=== PATIENT | male | born 1950 | race Caucasian/White ===

== ENCOUNTER 2019-04-01 10:40 | Emergency (ER) | payer MEDICARE, OTHER ==
--- NOTE | 2019-04-01 11:34 | ER Document Report ---
ED Medical Screen (RME) - General Chief Complaint: Abdominal Pain Stated Complaint: LOWER ABDOMINAL PAIN Time Seen by Provider: 04/01/19 11:15 Mode of Arrival: Ambulatory Information source: Patient, Relative Notes: 69-year-old male presents with lower abdominal pain for months. Patient has history of colitis diverticulitis. He was treated with antibiotics and steroids in [place] in January or February. Patient reports he continues to have the pain. Also complains of bilateral hip pain left knee pain. Has history of gout. Denies fever vomiting but complains of some nausea. Reports last bowel movement was 3 days ago. Reports he takes MiraLAX on a regular basis and he had diarrhea for 3 times a row so he quit taking that 3 days ago. Patient is visiting from [place]. I have greeted and performed a rapid initial assessment of this patient. A comprehensive ED assessment and evaluation of the patient, analysis of test results and completion of the medical decision making process will be conducted by additional ED providers. Dictation of this chart was performed using voice recognition software; therefore, there may be some unintended grammatical errors. TRAVEL OUTSIDE OF THE [place] IN LAST 30 DAYS: No - Related Data Allergies/Adverse Reactions: No Known Allergies Allergy (Verified 04/01/19 10:55) Past Medical History - Social History Chew tobacco use (# tins/day): No Frequency of alcohol use: None Drug Abuse: None - Past Medical History Cardiac Medical History: Reports: Hx Hypercholesterolemia, Hx Hypertension Musculoskeltal Medical History: Reports Hx Arthritis
[2019-04-01 12:07] LABS: ABSOLUTE BASOPHILS # (AUTO) 0.1 10^3/uL (0.0-0.2); ABSOLUTE EOSINOPHILS # (AUTO) 0.2 10^3/uL (0.0-0.6); ABSOLUTE LYMPHOCYTES (AUTO) 1.5 10^3/uL (0.5-4.7); ABSOLUTE MONOCYTES (AUTO) 1.1 10^3/uL (0.1-1.4); ABSOLUTE NEUT (AUTO) 6.6 10^3/uL (1.7-8.2); BASOPHILS % (AUTO) 0.5 % (0-2); EOSINOPHILS % (AUTO) 1.8 % (0-6); HEMATOCRIT 37.8 % (37.9-51.0); HEMOGLOBIN 12.8 g/dL (13.5-17.0); LYMPHOCYTES % (AUTO) 15.6 % (13-45); MEAN CORPUSCULAR HGB CONC 33.9 g/dL (32.0-36.0); MEAN CORPUSCULAR VOLUME 92 fl (80-97); MONOCYTES % (AUTO) 11.5 % (3-13); PLATELET COUNT 204 10^3/uL (150-450); RED BLOOD COUNT 4.13 10^6/uL (4.35-5.55); RED CELL DISTRIBUTION WIDTH 14.3 % (11.5-14.0); SEGMENTED NEUTROPHILS % (AUTO) 70.6 % (42-78); TOTAL CELLS COUNTED % (AUTO) 100 %; WHITE BLOOD COUNT 9.3 10^3/uL (4.0-10.5)
[2019-04-01 12:17] LABS: ALBUMIN 3.9 g/dL (3.5-5.0); ALKALINE PHOSPHATASE 90 U/L (38-126); ANION GAP 10 (5-19); ASPARTATE AMINO TRANSFERASE 23 U/L (17-59); BILIRUBIN,DIRECT 0.1 mg/dL (0.0-0.4); BLOOD UREA NITROGEN 22 mg/dL (7-20); CALCIUM 9.7 mg/dL (8.4-10.2); CARBON DIOXIDE 25 mmol/L (22-30); CHLORIDE 105 mmol/L (98-107); GLUCOSE 114 mg/dL (75-110); POTASSIUM 4.4 mmol/L (3.6-5.0); TOTAL PROTEIN 6.6 g/dL (6.3-8.2)
[2019-04-01] MEDS ORDERED: MORPHINE SULFATE 10 MG/ML INJ IV ONE (12:46)
[2019-04-01] MEDS ORDERED: NORMAL SALINE 1000 ML 1,000 ML IV PRN ×2 (12:47→15:35)
[2019-04-01 12:54] LABS: ERYTHROCYTE SEDIMENTATION RATE 45 mm/hr (0-20)
--- NOTE | 2019-04-01 13:24 | ER Document Report ---
ED General - General Chief Complaint: Abdominal Pain Stated Complaint: LOWER ABDOMINAL PAIN Time Seen by Provider: 04/01/19 11:15 Mode of Arrival: Ambulatory TRAVEL OUTSIDE OF THE [place] IN LAST 30 DAYS: No - HPI Notes: This is a 69-year-old gentleman who presents today with a complaint of left lower quadrant abdominal pain for the past 2 to 3 days. Patient states that he has history of Crohn's disease and diverticulitis, and has had recent multiple flareups. Patient states he thinks this is from diverticulitis. He denies any vomiting or diarrhea. He denies any dark or bloody stools. He denies any fever or chills. He describes the symptoms as moderate. Pain is worse with palpation. - Related Data Allergies/Adverse Reactions: No Known Allergies Allergy (Verified 04/01/19 10:55) Past Medical History - General Information source: Patient, Relative - Social History Smoking Status: Current Every Day Smoker Chew tobacco use (# tins/day): No Frequency of alcohol use: None Drug Abuse: None Family History: Reviewed & Not Pertinent Patient has suicidal ideation: No Patient has homicidal ideation: No - Past Medical History Cardiac Medical History: Reports: Hx Hypercholesterolemia, Hx Hypertension Musculoskeletal Medical History: Reports Hx Arthritis Review of Systems - Review of Systems Constitutional: denies: Fever Cardiovascular: denies: Chest pain, Palpitations Gastrointestinal: Abdominal pain. denies: Diarrhea, Vomiting Genitourinary: denies: Flank pain, Hematuria -: Yes All other systems reviewed and negative Physical Exam - Vital signs Vitals: Temp Pulse Resp BP Pulse Ox 97.9 F 83 16 125/66 97 04/01/19 10:48 04/01/19 10:48 04/01/19 10:48 04/01/19 10:48 04/01/19 10:48 Interpretation: Normal Notes: Reviewed and unremarkable. - General General appearance: Appears well, Alert - Respiratory Respiratory status: No respiratory distress Chest status: Nontender Breath sounds: Normal Chest palpation: Normal - Cardiovascular Rhythm: Regular Heart sounds: Normal auscultation Murmur: No - Abdominal Inspection: Normal Distension: No distension Bowel sounds: Normal Tenderness: Tender - There is left lower quadrant tenderness to palpation. There is slight epigastric tenderness. Patient describes it as sore. No guarding or rebound. Organomegaly: No organomegaly - Extremities General upper extremity: Normal inspection, Nontender, Normal color, Normal ROM, Normal temperature General lower extremity: Normal inspection, Nontender, Normal color, Normal ROM, Normal temperature, Normal weight bearing. No: David's sign - Neurological Neuro grossly intact: Yes Cognition: Normal Orientation: AAOx4 [place] Coma Scale Eye Opening: Spontaneous [place] Coma Scale Verbal: Oriented [place] Coma Scale Motor: Obeys Commands Ivanna Coma Scale Total: 15 Speech: Normal Motor strength normal: LUE, RUE, LLE, RLE Sensory: Normal - Skin Skin Temperature: Warm Skin Moisture: Dry Skin Color: Normal Course - Re-evaluation Re-evalutation: 04/01/19 13:23 Differential diagnosis includes diverticulitis versus Crohn's flare versus nonspecific abdominal pain versus colitis vs pancreatitis. Doubt toxic megacolon. Will get CT scan. Will check basic labs. 04/01/19 15:38 Patient reevaluated. Patient is doing well. Labs and CT reviewed. Will need to admit for gallstone pancreatitis. Patient's care discussed with Dr. Ahmadi, surgery. He recommends medicine admit. Agrees with getting gallbladder ultrasound. Patient's care discussed with Dr. Smith. Will admit. - Vital Signs Vital signs: Temp Pulse Resp BP Pulse Ox 97.9 F 83 16 130/76 H 97 04/01/19 10:48 04/01/19 10:48 04/01/19 10:48 04/01/19 13:01 04/01/19 13:01 - Laboratory Result Diagrams: 04/01/19 11:48 04/01/19 11:48 Laboratory results interpreted by me: 04/01/19 04/01/19 11:48 11:48 RBC 4.13 L Hgb 12.8 L Hct 37.8 L RDW 14.3 H ESR 45 H BUN 22 H Glucose 114 H Lipase 643.0 H Discharge - Discharge Clinical Impression: Acute cholecystitis due to biliary calculus Acute pancreatitis Qualifiers: Pancreatitis type: unspecified pancreatitis type Acute pancreatitis complication: unspecified Qualified Code(s): K85.90 - Acute pancreatitis without necrosis or infection, unspecified Condition: Good Disposition: ADMITTED INPATIENT Admitting Provider: Luis (Hospitalist) Unit Admitted: Medical Floor
--- NOTE | 2019-04-01 15:22 | RADIOLOGY REPORT (SQ) ---
EXAM DESCRIPTION: CT ABD/PELVIS WITH IV ONLY COMPLETED DATE/TIME: 04/01/2019 2:29 pm REASON FOR STUDY: LLQ pain ? diverticulitis COMPARISON: None. TECHNIQUE: CT scan of the abdomen and pelvis performed using helical scanning technique with dynamic intravenous contrast injection. No oral contrast. Images reviewed with lung, soft tissue, and bone windows. Reconstructed coronal and sagittal MPR images reviewed. Delayed images for evaluation of the urinary system also acquired. All images stored on PACS. All CT scanners at this facility use dose modulation, iterative reconstruction, and/or weight based d osing when appropriate to reduce radiation dose to as low as reasonably achievable (ALARA). [facility]: Dose Right [facility]: CareDose [facility]: Dose Right [facility]: Teradose 4D [facility]: [employer] CONTRAST TYPE AND DOSE: contrast/concentration: Isovue 350.00 mg/ml; Total Contrast Delivered: 86.0 ml; Total Saline Delivered: 69.0 ml RENAL FUNCTION: Creatinine 0.9 RADIATION DOSE: CT Rad equipment meets quality standard of care and radiation dose reduction techniq ues were employed. CTDIvol: 6.5 - 8.3 mGy. DLP: 849 mGy-cm.. LIMITATIONS: None. FINDINGS: LOWER CHEST: 7 mm benign pleural-based nodule right lung base. LIVER: Normal size. No masses. No dilated ducts. SPLEEN: Normal size. No focal lesions. PANCREAS: No masses. No significant calcifications. No adjacent inflammation or peripancreatic fluid collections. Pancreatic duct not dilated. GALLBLADDER: Multiple stones in the gallbladder. Gallbladder wall thickening along the fundus, quest ion cholecystitis ADRENAL GLANDS: No significant masses or asymmetry. RIGHT KIDNEY AND URETER: No solid masses. No significant calcifications. No hydronephrosis or hyd roureter. LEFT KIDNEY AND URETER: No solid masses. No significant calcifications. No hydronephrosis or hydr oureter. AORTA AND VESSELS: No aneurysm. No dissection. Renal arteries, SMA, celiac without stenosis. RETROPERITONEUM: No retroperitoneal adenopathy, hemorrhage or masses. BOWEL AND PERITONEAL CAVITY: No masses or inflammatory changes. No free fluid or peritoneal masses. APPENDIX: Normal. PELVIS: No mass. No free fluid. Normal bladder. Post prostatectomy. ABDOMINAL WALL: No masses. No hernias. BONES: Advanced osteoarthritis left hip OTHER: No other significant finding. IMPRESSION: Stones in the gallbladder with mild gallbladder wall thickening at the fundus. Question cholecystitis TECHNICAL DOCUMENTATION: JOB ID: [id number] Quality ID # [id number]: Final reports with documentation of one or more dose reduction techniques (e.g., Au tomated exposure control, adjustment of the mA and/or kV according to patient size, use of iterative reconstruction technique) 2010 [employer]- All Rights Reserved Reading location - IP/workstation name: [email or web address]
[2019-04-01 15:41] LABS: APPEARANCE,URINE CLEAR; BILIRUBIN,URINE NEGATIVE (NEGATIVE); COLOR,URINE YELLOW; GLUCOSE, URINE NEGATIVE (NEGATIVE); KETONES,URINE NEGATIVE (NEGATIVE); LEUKOCYTE ESTERASE,URINE NEGATIVE (NEGATIVE); NITRITE,URINE NEGATIVE (NEGATIVE); PROTEIN,URINE NEGATIVE (NEGATIVE); URINE SPECIFIC GRAVITY 1.027; UROBILINOGEN,URINE NEGATIVE mg/dL (<2.0)
[2019-04-01 16:24] LABS: ANION GAP 9 (5-19); BLOOD UREA NITROGEN 19 mg/dL (7-20); CALCIUM 9.1 mg/dL (8.4-10.2); CARBON DIOXIDE 25 mmol/L (22-30); CHLORIDE 104 mmol/L (98-107); GLUCOSE 97 mg/dL (75-110); POTASSIUM 4.4 mmol/L (3.6-5.0)
--- NOTE | 2019-04-01 17:04 | PDOC CONSULTATION ---
Consultation Consult Date: 04/01/19 Provider Consulted: SEBASTIEN GUEVARA Consult reason:: hip and abd pain, elevated lipase History of Present Illness Patient complains of: left hip and knee pain History of Present Illness: CAROLINA FRANCO is a 69 year old male who has h/o crohn's disease diagnosed an 1970s. he was diagnosed wrongly before with pancreatitis and was then turned out to be crohn's disease as he tells me. he presents with several days h/o of sharp pain in his hip and knee. also pain in the epigastric area and LLQ and RLQ areas. he gets this pain sometimes and goes away spontaneously. he attributed this to crohn's disease. he has had nausea that was mild and was brief but tolerates diet very well. he has no fever. he has severe OA left hip. his main complaint really is left hip and knee pain that was severe specially last night. no RUQ pain or tenderness on exam. knee exam is benign. there was tenderness ov er the left hip and increased pain with movement. he used to take NSAIDs daily for his hip but stopped because he was advised against that by his GI specialist. Past Medical History Cardiac Medical History: Reports: Hyperlipidema, Hypertension Musculoskeltal Medical History: Reports: Arthritis Social History Smoking Status: Current Every Day Smoker Family History Family History: Reviewed & Not Pertinent Parental Family History Reviewed: Yes Children Family History Reviewed: Yes Sibling(s) Family History Reviewed.: Yes Medication/Allergy Home Medications: Allopurinol [Zyloprim 300 mg Tablet] 300 mg PO DAILY 04/01/19 Atorvastatin Calcium [Lipitor 20 mg Tablet] 20 mg PO QHS 04/01/19 Ezetimibe [Zetia 10 mg Tablet] 10 mg PO DAILY 04/01/19 Fluticasone Propionate [Flonase Nasal [place] 50 Mcg/[place] 16 gm] 1 spray NASL DAILYP PRN 04/01/19 Hydrocodone/Acetaminophen [[place] 10-325 mg Tablet] 1 tab PO Q4H PRN #18 tablet 04/01/19 Loratadine [Claritin 10 mg Tablet] 10 mg PO DAILY 04/01/19 Losartan Potassium [Cozaar 100 mg Tablet] 100 mg PO DAILY 04/01/19 Metoprolol Tartrate [Lopressor 50 mg Tablet] 50 mg PO DAILY 04/01/19 Multivitamin [Multiple Vitamins] 1 tab PO DAILY 04/01/19 [place]-3 Acid Ethyl Esters [Lovaza 1 gm Capsule] 2 gm PO DAILY 04/01/19 Allergies/Adverse Reactions: No Known Allergies Allergy (Verified 04/01/19 10:55) Physical Exam Vital Signs: Temp Pulse Resp BP Pulse Ox 97.9 F 83 16 130/76 H 97 04/01/19 10:48 04/01/19 10:48 04/01/19 10:48 04/01/19 13:01 04/01/19 13:01 General appearance: PRESENT: no acute distress Head exam: PRESENT: atraumatic, normocephalic Eye exam: PRESENT: conjunctival injection, EOMI Ear exam: ABSENT: bleeding, drainage Mouth exam: PRESENT: moist, neck supple Neck exam: PRESENT: full ROM. ABSENT: meningismus, tenderness Respiratory exam: PRESENT: clear to auscultation diane, unlabored. ABSENT: acce ssory muscle use, chest wall tenderness, tachypnea Cardiovascular exam: PRESENT: RRR. ABSENT: diastolic murmur, systolic murmur Pulses: PRESENT: normal dorsalis pedis pul GI/Abdominal exam: PRESENT: soft, tenderness - very mild LLQ. ABSENT: ascites, Villarreal's sign, rebound Musculoskeletal exam: PRESENT: ambulatory, tenderness - left hip. ABSENT: deformity Neurological exam: PRESENT: alert, awake, oriented to person, oriented to time, oriented to situation, abnormal gait Psychiatric exam: PRESENT: appropriate affect. ABSENT: agitated, anxious Skin exam: ABSENT: abrasion, cyanosis Results Laboratory Results: 04/01/19 11:48 04/01/19 15:35 04/01/19 04/01/19 04/01/19 11:48 11:48 15:00 WBC 9.3 RBC 4.13 L Hgb 12.8 L Hct 37.8 L MCV 92 MCH 31.0 MCHC 33.9 RDW 14.3 H Plt Count 204 Seg Neutrophils % 70.6 Sodium 140.2 Potassium 4.4 Chloride 105 Carbon Dioxide 25 Anion Gap 10 BUN 22 H Creatinine 0.93 Est GFR ( Amer) > 60 Glucose 114 H Calcium 9.7 Total Bilirubin 1.0 AST 23 Alkaline Phosphatase 90 Total Protein 6.6 Albumin 3.9 Lipase 643.0 H Urine Color YELLOW Urine Appearance CLEAR Urine pH 5.0 Ur Specific [place] 1.027 Urine Protein NEGATIVE Urine Glucose (UA) NEGATIVE Urine Ketones NEGATIVE Urine Blood NEGATIVE Urine Nitrite NEGATIVE Ur Leukocyte Esterase NEGATIVE Urine WBC (Auto) 0 Urine RBC (Auto) 2 04/01/19 15:35 WBC RBC Hgb Hct MCV MCH MCHC RDW Plt Count Seg Neutrophils % Sodium 137.9 Potassium 4.4 Chloride 104 Carbon Dioxide 25 Anion Gap 9 BUN 19 Creatinine 0.77 Est GFR ( Amer) > 60 Glucose 97 Calcium 9.1 Total Bilirubin AST Alkaline Phosphatase Total Protein Albumin Lipase Urine Color Urine Appearance Urine pH Ur Specific [place] Urine Protein Urine Glucose (UA) Urine Ketones Urine Blood Urine Nitrite Ur Leukocyte Esterase Urine WBC (Auto) Urine RBC (Auto) Impressions: Abdomen/Pelvis CT 04/01/19 12:42 IMPRESSION: Stones in the gallbladder with mild gallbladder wall thickening at the fundus. Question cholecystitis Assessment and Plan - Diagnosis (1) Osteoarthritis of left hip Is this a current diagnosis for this admission?: Yes (2) Crohn disease Is this a current diagnosis for this admission?: Yes (3) Elevated lipase Is this a current diagnosis for this admission?: Yes (4) HTN (hypertension) Is this a current diagnosis for this admission?: Yes (5) Dyslipidemia Is this a current diagnosis for this admission?: Yes - Plan Summary Plan Summary: discussed with patient and his daughter will get XR left hip will Rx hydrocodone and recommend f/u outpatient doubt pancreatitis or cholecystitis unfortunately Dr Guevara already left ER will go ahead and discharge the patient patient and daughter agree check XR hip to rule out fractures before d/c should return to ER anytime if his condition worsened
--- NOTE | 2019-04-01 17:41 | RADIOLOGY REPORT (SQ) ---
EXAM DESCRIPTION: HIP LEFT AP/LATERAL COMPLETED DATE/TIME: 04/01/2019 5:21 pm REASON FOR STUDY: pain COMPARISON: None. NUMBER OF VIEWS: Two views. TECHNIQUE: AP pelvis and additional frog-leg view of the left hip. LIMITATIONS: None. FINDINGS: MINERALIZATION: Normal. LEFT HIP: No fracture or dislocation. Severe arthrosis left hip joint. RIGHT HIP: No fracture or dislocation. No worrisome bone lesions. PUBIS AND ISCHIUM: No fracture. PELVIS: No fracture. SACRUM: No fracture or dislocation. No worrisome bone lesions. LOWER LUMBAR SPINE: Mild degenerative disc disease. SOFT TISSUES: No acute findings. OTHER: Contrast in the bladder. IMPRESSION: NO RADIOGRAPHIC EVIDENCE OF ACUTE INJURY.Severe arthrosis left hip joint. TECHNICAL DOCUMENTATION: JOB ID: [id number] 2010 [employer] All Rights Reserved Reading location - IP/workstation name: [email or web address]
[2019-04-01 18:22] VITALS: BP 140/80
--- NOTE | 2019-04-01 22:11 | EKG REPORT ---
SEVERITY:- NORMAL ECG - SINUS RHYTHM : Confirmed by: Abhijit Arriaza MD 01-Apr-2019 22:09:18
== END 2019-04-01 18:00 | disposition other institution (70) ==
LOC: ER 10:40 → EH 16:01 → UNDOADMIN 16:01
DX: K80.00 Calculus of gallbladder with acute cholecystitis without obstruction (principal); K85.90 Acute pancreatitis without necrosis or infection, unspecified; R10.32 Left lower quadrant pain; F17.200 Nicotine dependence, unspecified, uncomplicated; I10 Essential (primary) hypertension
CPT/HCPCS: 93005; 99285; 96361; 96374; 36415; 83690; 85025; 85652; 80053; 81001; 73502; 74177; 93010; J2270; J7030